=== PATIENT | male | born 1975 | race Caucasian/White ===

== ENCOUNTER 2017-10-08 16:26 | Emergency (ER) | payer SELFPAY ==
[~2017-10-08] VITALS: Ht 175.3 cm; Wt 90.7 kg
[2017-10-08 16:26] VITALS: BP 133/69
[2017-10-08] MEDS ORDERED: FLUORESCEIN SODIUM OPHTH 1 EA STRIP ONE (16:36)
[2017-10-08] MEDS ORDERED: TETRACAINE HCL/PF 0.5% UD 2 ML BOTTLE ONE (16:36)
[2017-10-08] MEDS: FLUORESCEIN SODIUM OPHTH 1 EA STRIP OP ONE (16:49)
[2017-10-08] MEDS: TETRACAINE HCL 0.5% OPHTALMIC 15 ML BOTTLE OP ONE (16:49)
[2017-10-08] MEDS: HYDROCODONE/APAP 5/325MG 1 EACH TABLET PO ONE (17:01)
[2017-10-08] MEDS ORDERED: HYDROCODONE/APAP 5/325MG 1 EACH TABLET ONE (17:01)
== END 2017-10-08 17:12 | disposition home or self-care (01) ==
LOC: EDBD 16:28 → ER 16:28
DX: H57.8 Other specified disorders of eye and adnexa (principal); M54.2 Cervicalgia; G89.29 Other chronic pain; W20.8XXA Other cause of strike by thrown, projected or falling object, initial encounter; Y93.89 Activity, other specified; Y92.89 Other specified places as the place of occurrence of the external cause; Y99.8 Other external cause status
CPT/HCPCS: A4606; Z7610